=== PATIENT | female | born 1940 | race Caucasian/White ===

== ENCOUNTER → 2017-10-08 | Outpatient (CLI) | payer OTHER ==
[~2017-10-08] MED LIST: ACTOS 30 MG TAB30 MG PO; AMLODIPINE-VAL1 EAC2 PO; CALCIUM +D & M1 EACH; CENTRUM SILVER1 EAC4 PO; COLACE100 MG PO; DIABETA 5MG TABL5 MG PO; EXFORGE PO; FISHOIL; GLIPIZIDE 10 MG10 MG PO; GLUCOPHAGE XR750 MG PO; GLUCOSAMINE &1 EACH; HYDROCODONE-APA1 TA1 PO; IRON325 PO; LEVOTHYROXINE0.05 MG PO; METFORMIN HCL500 MG PO; MULTIVITAMINS; NORCO 5-325 TA1 EACH PO; SENNA8.6 MG PO; VITAMINC500 PO; XALATAN2.5 ML OPHTHALMIC; XARELTO10 MG PO; cinsulin
--- NOTE | ~2017-10-08 | 2DMMODE ---
[facility] [address] [place] [address] 2 D/M-MODE ECHOCARDIOGRAM Name: DI LESTER MIGUEL Room #: REG [facility]#: [id number] Admission: 10/08/17 Attend Phys: Robert Alvarenga, Discharge: Date of : 44 Date of Service: 10/08/17 1634 Report #: [id number] THIS REPORT FOR: //name// APPROVED REPORT Study performed: 10/08/2017 11:06:23 EXAM: Comprehensive 2D, Doppler, and color-flow Echocardiogram Patient Location: Echo lab Status: routine BSA: 1.98 HR: 90 bpm BP: 153/69 mmHg Rhythm: LBBB Other Information Study Quality: Good Indications CAD Hypertension/HDD 2D Dimensions RVDd: 38.77 mm LVEF(%): 57.78 (>50%) IVSd: 10.73 (7-11mm) LVOT Diam: 17.96 (18-24mm) LVDd: 47.04 mm PWd: 11.01 (7-11mm) Ascending Ao: 26.33 (22-36mm) LVDs: 32.74 (25-40mm) Aortic Root: 25.72 mm IVC: 15.00 mm Lyn's LVEF: 57.78 % Volumes Left Atrial Volume (Systole) Single Plane 4CH: 43.21 mL Single Plane 2CH: 34.25 mL LA ESV Index: 21.00 mL/m2 Aortic Valve AoV Peak Harsha.: 1.69 m/s AO Peak Gr.: 11.36 mmHg LVOT Max P.60 mmHg LVOT Max V: 1.18 m/s PURVI Vmax: 1.78 cm2 Mitral Valve E/A Ratio: 1.1 [facility] [address] [place] [address] 2 D/M-MODE ECHOCARDIOGRAM Name: TAYLERDI MIGUEL Room #: [facility]#: [id number] Admission: 10/08/17 Attend Phys: Robert Alvarenga, Discharge: Date of : 44 Date of Service: 10/08/17 1634 Report #: [id number] MV Decel. Time: 151.67 ms MV E Max Harsha.: 1.15 m/s MV A Harsha.: 1.08 m/s MV PHT: 43.98 ms IVRT: 78.43 ms Pulmonary Valve PV Peak Harsha.: 1.19 m/s PV Peak Gr.: 5.67 mmHg Pulmonary Vein P Vein S: 0.52 m/s P Vein A: 0.28 m/s P Vein D: 0.56 m/s P Vein A Dur.: 138.4 msec P Vein S/D Ratio: 0.93 Tricuspid Valve TR Peak Harsha.: 3.08 m/s RAP Estimate: 5.00 mmHg TR Peak Gr.: 37.90 mmHg PA Pressure: 43.00 mmHg Left Ventricle The left ventricle is normal size. There is normal LV segmental wall motion. Mild concentric left ventricular hypertrophy. The left ventricular systolic function is normal. The left ventricular ejection fraction is within the normal range. LVEF is 55-60%. Grade II - pseudonormal filling dynamics. Right Ventricle The right ventricle is normal size. The right ventricular systolic function is normal. Atria The left atrium size is normal. Right atrium is at the upper limits of normal. Aortic Valve Aortic valve is mildly calcified. No aortic regurgitation. There is no aortic valvular stenosis. Mitral Valve Mild to moderate mitral annular calcification. Mitral valve leaflets are mildly thickened. Mild mitral regurgitation. No evidence of mitral valve stenosis. Tricuspid Valve The tricuspid valve is normal in structure. Mild tricuspid regurgitation. PAP is estimated at 42 mmHg. [facility] [address] [place] [address] 2 D/M-MODE ECHOCARDIOGRAM Name: DI LESTER Room #: REG [facility]#: [id number] Admission: 10/08/17 Attend Phys: Robert Alvarenga, Discharge: Date of : 44 Date of Service: 10/08/17 1634 Report #: [id number] Pulmonic Valve The pulmonary valve is normal in structure. Mild pulmonic regurgitation. Great Vessels The aortic root is normal in size. IVC is normal in size and collapses >50% with inspiration. Pericardium There is no pericardial effusion. <Conclusion> The left ventricular systolic function is normal. Mild concentric left ventricular hypertrophy. There is normal LV segmental wall motion. LVEF is 55-60%. Moderate diastolic dysfunction Aortic valve is mildly calcified. No aortic regurgitation or stenosis Mild to moderate mitral annular calcification. Mitral valve leaflets are mildly thickened. Mild-moderate mitral regurgitation. Mild tricuspid regurgitation. Pulmonary artery pressure estimated at 42 mmHg. There is no pericardial effusion. <ELECTRONICALLY SIGNED> By: Abhi Tripathi MD, FACC 10/08/17 1634 1634 1634 Abhi Tripathi MD, FACC /INF
== END ==
LOC: NUC 07:52
DX: I08.1 Rheumatic disorders of both mitral and tricuspid valves (principal); I25.10 Atherosclerotic heart disease of native coronary artery without angina pectoris; I10 Essential (primary) hypertension; E11.9 Type 2 diabetes mellitus without complications; E78.5 Hyperlipidemia, unspecified; R68.89 Other general symptoms and signs

== ENCOUNTER → 2018-07-02 | Outpatient (CLI) | payer OTHER ==
--- NOTE | 2018-07-02 16:11 | 2DMMODE ---
[facility] [place] [place] [address] 2 D/M-MODE ECHOCARDIOGRAM Name: DI LESTER MIGUEL Room #: REG [facility]#: [id number] ������������� Admission: 07/02/18 ������������� Attend Phys: Robert Alvarenga, Discharge: ��� ������������� ��� Date of : 44 Date of Service: 07/02/18 1611 �� Report #: [id number] �������� ��������������������������������������������[id number] THIS REPORT FOR: //name// APPROVED REPORT Study performed: 07/02/2018 11:10:37 EXAM: Comprehensive 2D, Doppler, and color-flow Echocardiogram Patient Location: Out-Patient Room #: Echo lab 2 Status: routine BSA: 1.97 HR: 80 bpm BP: 138/70 mmHg Rhythm: Atrial Fibrillation Other Information Study Quality: Good Indications Atrial Fibrillation Hypertension/HDD HLP 2D Dimensions IVSd: 11.91 (7-11mm) LVOT Diam: 20.10 (18-24mm) LVDd: 47.28 mm PWd: 11.98 (7-11mm) Ascending Ao: 24.64 (22-36mm) LVDs: 36.84 (25-40mm) Aortic Root: 27.84 mm IVC: 12.00 mm Volumes Left Atrial Volume (Systole) Single Plane 4CH: 48.24 mL Single Plane 2CH: 51.57 mL LA ESV Index: 32.00 mL/m2 Aortic Valve AoV Peak Harsha.: 1.55 m/s AO Peak Gr.: 9.63 mmHg LVOT Max P.60 mmHg LVOT Max V: 0.95 m/s PURVI Vmax: 1.94 cm2 Pulmonary Valve PV Peak Harsha.: 0.88 m/s PV Peak Gr.: 3.12 mmHg [facility] [address] [place] [address] 2 D/M-MODE ECHOCARDIOGRAM Name: DI LESTER Room #: [facility]#: [id number] ������������� Admission: 07/02/18 ������������� Attend Phys: Robert Alvarenga, Discharge: ��� ������������� ��� Date of : 44 Date of Service: 07/02/18 1611 �� Report #: [id number] �������� ��������������������������������������������[id number] Tricuspid Valve TR Peak Harsha.: 2.69 m/s TR Peak Gr.: 28.91 mmHg PA Pressure: 34.00 mmHg Left Ventricle The left ventricle is normal size. There is normal LV segmental wall motion. Mild concentric left ventricular hypertrophy. Left ventricular systolic function is normal. mild global hypokinesis LVEF is 45-50% This study is not technically sufficient to allow evaluation of the LV diastolic function due to atrial fibrillation. Right Ventricle The right ventricle is normal size. The right ventricular systolic function is normal. Atria The left atrium size is normal. The right atrium size is normal. Aortic Valve The aortic valve is normal in structure. No aortic regurgitation is present. There is no aortic valvular stenosis. Mitral Valve The mitral valve is normal in structure. Mild mitral regurgitation. No evidence of mitral valve stenosis. Tricuspid Valve The tricuspid valve is normal in structure. There is mild tricuspid regurgitation. Estimated PAP 34 mmHg. There is mild pulmonary hypertension. Pulmonic Valve The pulmonary valve is normal in structure. Trace pulmonic regurgitation. Great Vessels The aortic root is normal in size. IVC is normal in size and collapses >50% with inspiration. Pericardium There is no pericardial effusion. <Conclusion> [facility] [place] [address] 2 D/M-MODE ECHOCARDIOGRAM Name: DI LESTER Room #: [facility] Brown#: [id number] ������������� Admission: 07/02/18 ������������� Attend Phys: Robert Alvarenga, Discharge: ��� ������������� ��� Date of : 44 Date of Service: 07/02/181610 �� Report #: [id number] �������� ��������������������������������������������[id number] The left ventricle is normal size. Mild concentric left ventricular hypertrophy. Left ventricular systolic function is normal. mild global hypokinesis LVEF is 45-50% The right ventricle is normal size. The left atrium size is normal. The aortic valve is normal in structure. Mild mitral regurgitation. There is mild tricuspid regurgitation. Estimated PAP 34 mmHg. There is mild pulmonary hypertension. The aortic root is normal in size. There is no pericardial effusion. ��������������������������������������������� <ELECTRONICALLY SIGNED> ���������������������������������������� By: Robert Alvarenga MD, [facility] ��������������������������������������������� 07/02/181610 10 10 Robert Alvarenga MD, FACC /INF
== END ==
LOC: CV 08:50
DX: I08.1 Rheumatic disorders of both mitral and tricuspid valves (principal); I27.20 Pulmonary hypertension, unspecified; I48.0 Paroxysmal atrial fibrillation; I10 Essential (primary) hypertension; E78.5 Hyperlipidemia, unspecified; Z88.5 Allergy status to narcotic agent; Z88.2 Allergy status to sulfonamides

== ENCOUNTER → 2019-09-20 | Outpatient (CLI) | payer OTHER ==
[~2019-09-20] MED LIST changes: +ACARBOSE50 MG PO; +ALENDRONATE SOD70 MG PO; +DILTIAZEM 24HR180 M1 PO; +ELIQUIS5 MG PO; +GLIMEPIRIDE4 MG PO; +IRBESARTAN-HCT1 EAC1 PO; +LEVO-T75 MCG PO; +PIOGLITAZONE15 MG; +TOPROL XL100 MG PO
== END ==
LOC: SJCVCIMAG 11:30
PROVIDERS: ATTEND Internal Medicine Cardiovascular Disease
DX: I08.8 Other rheumatic multiple valve diseases (principal); R94.31 Abnormal electrocardiogram [ECG] [EKG]; I44.7 Left bundle-branch block, unspecified; I49.3 Ventricular premature depolarization; I49.49 Other premature depolarization; I25.10 Atherosclerotic heart disease of native coronary artery without angina pectoris; E11.9 Type 2 diabetes mellitus without complications; D68.59 Other primary thrombophilia; E78.00 Pure hypercholesterolemia, unspecified; I48.0 Paroxysmal atrial fibrillation; Z79.899 Other long term (current) drug therapy; Z82.49 Family history of ischemic heart disease and other diseases of the circulatory system

== ENCOUNTER → 2020-04-04 | Outpatient (CLI) | payer OTHER | LOC: SJCVC 13:33 | PROVIDERS: ATTEND Internal Medicine Cardiovascular Disease | DX: R94.31 Abnormal electrocardiogram [ECG] [EKG] (principal); I25.10 Atherosclerotic heart disease of native coronary artery without angina pectoris; I48.0 Paroxysmal atrial fibrillation; I44.7 Left bundle-branch block, unspecified; I10 Essential (primary) hypertension; E78.00 Pure hypercholesterolemia, unspecified; E11.9 Type 2 diabetes mellitus without complications; M19.90 Unspecified osteoarthritis, unspecified site; Z79.899 Other long term (current) drug therapy ==

== ENCOUNTER → 2020-10-03 | Outpatient (CLI) | payer OTHER | LOC: SJCVC 13:00 | PROVIDERS: ATTEND Internal Medicine Cardiovascular Disease | DX: R94.31 Abnormal electrocardiogram [ECG] [EKG] (principal); I44.7 Left bundle-branch block, unspecified; R93.1 Abnormal findings on diagnostic imaging of heart and coronary circulation; I48.0 Paroxysmal atrial fibrillation; I10 Essential (primary) hypertension; I25.10 Atherosclerotic heart disease of native coronary artery without angina pectoris; I48.91 Unspecified atrial fibrillation; E78.00 Pure hypercholesterolemia, unspecified; E11.9 Type 2 diabetes mellitus without complications; M19.90 Unspecified osteoarthritis, unspecified site; Z90.49 Acquired absence of other specified parts of digestive tract; Z88.5 Allergy status to narcotic agent; Z88.2 Allergy status to sulfonamides; Z88.8 Allergy status to other drugs, medicaments and biological substances; Z79.899 Other long term (current) drug therapy; Z82.49 Family history of ischemic heart disease and other diseases of the circulatory system ==

== ENCOUNTER → 2021-04-11 | Outpatient (CLI) | payer OTHER | LOC: SJCVCIMAG 07:04 | PROVIDERS: ATTEND Internal Medicine Cardiovascular Disease | DX: I08.0 Rheumatic disorders of both mitral and aortic valves (principal); R94.31 Abnormal electrocardiogram [ECG] [EKG]; I45.9 Conduction disorder, unspecified; I11.9 Hypertensive heart disease without heart failure; I44.7 Left bundle-branch block, unspecified; I25.10 Atherosclerotic heart disease of native coronary artery without angina pectoris; R93.1 Abnormal findings on diagnostic imaging of heart and coronary circulation; D68.59 Other primary thrombophilia; E11.9 Type 2 diabetes mellitus without complications; I48.0 Paroxysmal atrial fibrillation; E78.00 Pure hypercholesterolemia, unspecified; E78.5 Hyperlipidemia, unspecified; Z79.84 Long term (current) use of oral hypoglycemic drugs; Z79.899 Other long term (current) drug therapy; Z88.5 Allergy status to narcotic agent; Z88.2 Allergy status to sulfonamides; Z88.8 Allergy status to other drugs, medicaments and biological substances; Z82.49 Family history of ischemic heart disease and other diseases of the circulatory system ==